=== PATIENT | male | born 1980 | race Caucasian/White ===

== ENCOUNTER → 2016-03-12 | Outpatient (CLI) | payer BC ==
--- NOTE | 2016-03-12 09:44 | DX ---
Cervical Spine, 2 views. HISTORY: Pain. Evaluate for stability. History of prior fusion. COMPARISON: None. FINDINGS: Postsurgical changes are seen of anterior fusion of C5-C6. There is an anterior fixation pl ate and vertebral body screws at C5 and C6 and interbody bone graft. There is fracture through at [address] st one of the screws in the C5 vertebral body. No evidence for prevertebral soft tissue swelling. No significant spondylolisthesis. Disk height narrowing at C5-C6 and minimal at C4-C5 and C6-C7. IMPRESSION: Postsurgical changes of anterior fusion of C5-C6 with fracture of one of the screws at C5 within the vertebral body. Consider flexion-extension studies for further evaluation.
== END ==
LOC: BMCIMAGING 09:05
PROVIDERS: ATTEND Nurse Practitioner Adult Health
DX: M54.2 Cervicalgia (principal); Z98.1 Arthrodesis status